=== PATIENT | male | born 1970 | race Caucasian/White ===

== ENCOUNTER → 2019-05-12 | Outpatient (CLI) | payer BC ==
--- NOTE | 2019-05-12 14:15 | P.SLEEP ---
History of Present Illness H&P Date: 05/12/19 Chief Complaint: Hypersomnia This is a 49-year-old male patient diagnosed having severe obstructive sleep apnea based on a home sleep study that was done on 03/24/2019. The [facility] system was used to complete his home sleep study and the patient was found to have severe obstructive sleep apnea with an AHI of 34.3. The patient also demonstrated severe nocturnal oxygen desaturation as the patient spent approximately 2 hours of the sleep time at a pulse ox of less than 88%. Based on all this, the patient was referred to me for treatment recommendations. He is symptomatic. He has gained about 50 pounds over the past few years. He is very much found that and sleepy. He is unable to sleep and his sleep was very much fragmented. He goes to bed around 10 PM wakes up 6 every morning and he is very much somnolent and sleepy during the day. His current a score is at 6. He does not fall asleep while driving. No other significant comorbidities. Review of Systems Constitutional: Reports daytime sleepiness, Reports weight gain Eyes: bilateral tunnel vision/blind spots, denies as per HPI, denies blurred vision, denies bulging eye, denies decreased vision, denies diplopia, denies discharge, denies dry eye, denies irritation, denies itching, denies pain, denies photophobia, denies loss of peripheral vision, denies loss of vision Ears, nose, mouth and throat: Reports as per HPI (The patient has loud snoring) Breasts: absent: as per HPI, gynecomastia Cardiovascular: Denies chest pain, Denies shortness of breath Respiratory: Reports sleep apnea, Reports snoring Gastrointestinal: Denies abdominal pain, Denies diarrhea, Denies nausea, Denies vomiting Genitourinary: Reports as per HPI Musculoskeletal: Reports as per HPI Musculoskeletal: absent: ankle pain, ankle stiffness, ankle swelling, as per HPI, elbow pain, elbow stiffness, elbow swelling, foot pain, foot stiffness, foot swelling, hand pain, hand stiffness, hand swelling, hip pain, hip stiffness, hip swelling, knee pain, knee stiffness, knee swelling, shoulder pain, shoulder stiffness, shoulder swelling, wrist pain, wrist stiffness, wrist swelling Integumentary: Denies pruritus, Denies rash Neurological: Reports as per HPI Psychiatric: Reports as per HPI Endocrine: Reports as per HPI, Reports fatigue Hematologic/Lymphatic: Reports as per HPI Allergic/Immunologic: Reports as per HPI Past Medical History Past Medical History: Sleep Apnea/CPAP/BIPAP (AHI of 34) Past Surgical History: Appendectomy, Orthopedic Surgery (Arthroscopic knee surgery) Smoking Status: Never smoker Past Alcohol Use History: None Reported, Occasional Past Drug Use History: None Reported - Past Family History Father Family Medical History: Asthma, Diabetes Mellitus, Hypertension Medications and Allergies Home Medications and Allergies Comment(s): Flonase spray when necessary and [place] 180 mg by mouth daily Physical Exam Vitals: BP is 135/84, pulse is 107, respiration is 18, temperature 98.4, weight is 332, The neck size 20 inches, [place] score 6, BMI 35.5, Morbidly obese, comfortable likely distress.The patient appeared well nourished and normally developed. Vital signs as documented. Head exam is unremarkable. No scleral icterus or corneal arcus noted. Neck is without jugular venous distension, thyromegaly, or carotid bruits. The patient has a Mallampati class IV. Carotid upstrokes are brisk bilaterally. Lungs are clear to auscultation and percussion. Cardiac exam reveals the PMI to be normally sized and situated. Rhythm is regular. First and second heart sounds normal. No murmurs, rubs or gallops. Abdominal exam reveals normal bowel sounds, no masses, no organomegaly and no aortic enlargement. Extremities are nonedematous and both femoral and pedal pulses are normal.Examination of the skin revealed no evidence of significant rashes, suspicious appearing nevi or other concerning lesions. Neurologically awake and alert and there is no focal neurological deficits. Assessment and Plan Plan: 1 severe obstructive sleep apnea with an AHI of 34 2 severe nocturnal oxygen desaturation 3 chronic hypersomnia 4 obesity with a BMI of 53.5 5 environmental ALLERGIES 6 history of mild intermittent bronchial asthma Plan The patient will be encouraged to lose weight. Improvement in sleep hygiene measures. I would like to get this patient to see Center to undergo a CPAP titration regarding BATSHEVA treatment. We'll try to get an authorization for that. I would like to adjust his CPAP pressure in the setting and given the appropriate mask interface. He is agreeable to that and he is scheduled for a CPAP titration and lab within the next few weeks. We'll continue to follow. Sleep Note - Sleep Note Sleep Note: Temperature: Pulse Rate: Respiratory Rate: Blood Pressure: SpO2: Height: Weight: BMI: Neck Circumference:
== END ==
CPT/HCPCS: 99201

== ENCOUNTER → 2019-09-01 | Outpatient (CLI) | payer BC ==
--- NOTE | 2019-09-01 17:51 | PN ---
PROGRESS NOTE Paul is 49 coming in for a check. He is on an APAP minimum pressure of 10, maximum pressure of 20 and he is compliant and his compliance is at 100% for CPAP use of more than 4 hours. He is averaging 6 hours and 45 minutes of CPAP use per night. His average pressure is up to 20 for the time being. His AHI is down to 2 and his leak is around 22 beats per minute. He is using a Simplus small size and he is looking for alternatives. His humidification system is adequate for now. He is refreshed and alert during the day. He has no new complaints. PHYSICAL EXAMINATION: VITAL SIGNS: BP is 163/78, pulse 91, respirations 22, [place] score is 5, weight is 243, and temperature 98.7 and BMI 52.1. Saturation 94% on room air. General appearance: Calm and comfortable. Head is atraumatic, normocephalic. NECK: Supple. There is no JVD. No goiter or neck masses. Mallampati class 4. LUNGS clear to auscultation. HEART: Heart sounds are regular rate and rhythm. Normal S1, S2. No S3, S4. No murmurs. ABDOMEN: Soft, nontender. No organomegaly. EXTREMITIES: No edema. No cyanosis or clubbing. IMPRESSION: 1. Severe symptomatic obstructive sleep apnea. The patient has been successfully treated. The patient has a baseline AHI of 34, currently on APAP, minimum of 10, maximum of 20 with excellent clinical response and compliance. The compliance data was checked. 2. Obesity, morbid with a BMI of with a BMI of 52. 3. Hypersomnia improved. 4. Hypertension. PLAN: 1. Offer this patient AirFit F20 and AirFit F30 medium-size mask as an alternative for his Simplus. 2. Continue APAP. 3. Encourage weight loss knowing that the patient continues to gain weight steadily. 4. Implement good sleep hygiene measures. Treatment remains successful. Encourage weight loss. 5. See me back in a year's time in followup, earlier if needed. MMODL / IJN: [id number] /
== END | disposition home or self-care (01) ==
LOC: SLEEP 15:58
PROVIDERS: ATTEND Internal Medicine Critical Care Medicine
DX: G47.33 Obstructive sleep apnea (adult) (pediatric) (principal); I10 Essential (primary) hypertension; E66.01 Morbid (severe) obesity due to excess calories; Z68.43 Body mass index [BMI] 50.0-59.9, adult; Z99.89 Dependence on other enabling machines and devices

== ENCOUNTER → 2021-06-15 | Outpatient (CLI) | payer OTHER ==
--- NOTE | 2021-06-15 14:42 | XR ---
EXAMINATION TYPE: XR elbow complete LT DATE OF EXAM: 06/15/2021 CLINICAL HISTORY: pain TECHNIQUE: Frontal, lateral and oblique images of the left elbow are obtained. COMPARISON: None. FINDINGS: There is no acute fracture/dislocation evident of the elbow. No abnormal fat pad signs ar e seen. The overlying soft tissue appears unremarkable. IMPRESSION: There is no acute fracture or dislocation of the elbow. ICD 10 NO FRACTURE, INITIAL EVALUATION
== END | disposition home or self-care (01) ==
LOC: RADXRMAIN 14:14
PROVIDERS: ATTEND Emergency Medicine
DX: S53.402A Unspecified sprain of left elbow, initial encounter (principal); X58.XXXA Exposure to other specified factors, initial encounter

== ENCOUNTER → 2021-08-08 | Outpatient (CLI) | payer BC ==
[2021-08-08 14:21] VITALS: PULSE 80; TEMP 98.2; BMI 52.0
[2021-08-08 14:22] VITALS: BP 144/80
--- NOTE | 2021-08-08 15:29 | P.HPBAR ---
Bariatric H&P - History & Physicial H&P Date: 08/08/21 History & Physicial: Visit/CC: initial clinic visit Patient initial contact: Initial weight: Initial weight in pounds: Height: 5 ft 7 in Initial BMI: Last weight: Current weight: 150.593 kg Current weight in pounds: 332.00 Current BMI: 52.0 Superior body weight (based on NIH guidelines): 67.132 kg Excess body weight loss: The patient is a 51 year-old M who presents for Bariatric Assessment. Patient presents interested in weight loss surgery. Patient states he is interested in sleeve gastrectomy. BMI 52. No tobacco use. Patient says he needs to lose weight in order to have his right hip replaced. Patient suffers from sleep apnea, asthma, gout, arthritis of the hip. No history of DVT or dysphagia. Review of Systems The patient denies any acute changes in vision or hearing, no dysphagia or odynophagia, no chest pain or shortness of breath, no dysuria or hematuria, no headache, no runny nose, no rectal bleeding or melena, no unexplained weight loss Past Medical History Past Medical History: Sleep Apnea/CPAP/BIPAP Additional Past Medical History / Comment(s): gout History of Any Multi-Drug Resistant Organisms: None Reported Past Surgical History: Appendectomy, Orthopedic Surgery Past Anesthesia/Blood Transfusion Reactions: No Reported Reaction Smoking Status: Never smoker - Past Family History Father Family Medical History: Asthma, Diabetes Mellitus, Hypertension Surgical - Exam Vital Signs Temp Pulse BP 98.2 F 80 144/80 08/08/21 14:18 08/08/21 14:18 08/08/21 14:18 Physical exam: General: Well-developed, well-nourished HEENT: Normocephalic, sclerae nonicteric Abdomen: Nontender, nondistended Extremities: No edema Neuro: Alert and oriented Bariatric Assessment & Plan (1) Morbid obesity with BMI of 50.0-59.9, adult Narrative/Plan: 51-year-old male with morbid obesity and associated comorbidities. Patient is interested in sleeve gastrectomy. Risks, benefits, and expected weight loss of sleeve gastrectomy and gastric bypass discussed in detail. The risks of bleeding, infection, stenosis, stricture, leak, abscess, fistula formation, peritonitis, poor weight loss, reflux, vomiting, conversion to an open procedure, aborting sleeve gastrectomy, PA, PE, DVT, and were discussed. The patient understands and wishes to proceed. He requires 3 months revised weight loss. We'll schedule upper endoscopy in the next 2-3 months. Status: Acute Bariatric Checklist Checklist: Plan: Checklist: EGD: 1. Hiatal hernia: 2. H. Pylori: HgbA1c: Vitamin D: Smoking: Never smoker Primary care physician referral: Psychiatry clearance: Cardiology clearance: Sleep study: Diet journal: VTE risk score: VTE risk level: Rehab needs at discharge:
[2021-08-08 15:56] LABS: HCT 45.6 % (39.0-53.0); HGB 15.3 gm/dL (13.0-17.5); MCH 32.7 pg (25.0-35.0); MCHC 33.5 g/dL (31.0-37.0); MCV 97.6 fL (80.0-100.0); Mean Platelet Volume 7.4; Platelet Count 359 k/uL (150-450); RBC 4.67 m/uL (4.30-5.90); WBC 12.7 k/uL (3.8-10.6)
[2021-08-09 03:24] LABS: Folate, Serum 11.2 ng/mL (4.40-31.00)
[2021-08-09 04:17] LABS: African American GFR (CKD) 117.7 (60.0-200.0); Albumin 4.4 g/dL (3.8-4.9); Albumin/Globulin Ratio 1.54 (1.60-3.17); Anion Gap 15.2 mmol/L (4.00-12.00); BUN/Creat Ratio 16.99 Ratio (12.00-20.00); Blood Urea Nitrogen 14.2 mg/dL (9.0-27.0); Calcium 9.3 mg/dL (8.7-10.3); Carbon Dioxide 23.2 mmol/L (21.6-31.8); Globulin 2.9 g/dL (1.6-3.3); Non-African American GFR(CKD) 101.6 (60.0-200.0); Total Bilirubin 0.3 mg/dL (0.30-1.20); Total Protein 7.2 g/dL (6.2-8.2)
[2021-08-10 10:58] LABS: Anabasine Urine <2.0 ng/mL (<2.0)
== END | disposition home or self-care (01) ==
LOC: BARWHC3 13:25
PROVIDERS: ATTEND Surgery
DX: E66.01 Morbid (severe) obesity due to excess calories (principal); Z68.43 Body mass index [BMI] 50.0-59.9, adult
CPT/HCPCS: 36415; 80053; 80323; 82306; 82607; 82746; 83036; 83540; 84425; 85027; 93005; 99211

== ENCOUNTER 2021-10-31 10:07 | Day surgery (SDC) | payer BC ==
[2021-10-26 13:32] VITALS: BMI 49.4
[~2021-10-31 10:07] MED LIST: LACTATED RINGERS 1,000 ML IV SCH; LIDOCAINE 1% (10MG/ML) FOR IV START INTRADERMA PRN
[2021-10-31 10:52] VITALS: TEMP 97.9
[2021-10-31] MEDS ORDERED: LIDOCAINE 1% INJ 10MG/ML (20 ML MDV) ONE (11:43)
[2021-10-31] MEDS ORDERED: PROPOFOL 10 MG/ML 20 ML VIAL IV ONE (11:43)
--- NOTE | 2021-10-31 11:45 | P.GSHP ---
History of Present Illness H&P Date: 10/31/21 Chief Complaint: GERD, screening 51-year-old male known to our service. Patient is being evaluated for possible bariatric surgery. Patient has not had a colonoscopy before. Mild reflux at times. No bowel complaints. No family history of colon cancer. Past Medical History Past Medical History: Asthma, Sleep Apnea/CPAP/BIPAP Additional Past Medical History / Comment(s): gout, USES C -PAP History of Any Multi-Drug Resistant Organisms: None Reported Past Surgical History: Appendectomy, Orthopedic Surgery Additional Past Surgical History / Comment(s): RIGHT KNEE ARTHROSCOPIC Past Anesthesia/Blood Transfusion Reactions: No Reported Reaction Smoking Status: Never smoker - Past Family History Father Family Medical History: No Reported History Mother Family Medical History: COPD Sister(s) Family Medical History: Cancer Medications and Allergies Home Medications Medication Instructions Recorded Confirmed Type Allopurinol [Zyloprim] 100 mg PO DAILY 08/07/21 10/31/21 History Multivitamins, Thera [Multivitamin 1 tab PO DAILY 10/26/21 10/26/21 History (formulary)] Cetirizine HCl [Zyrtec] 10 mg PO DAILY 10/31/21 10/31/21 History Allergies Allergy/AdvReac Type Severity Reaction Status Date / Time No Known Allergies Allergy Verified 10/31/21 10:45 Surgical - Exam Vital Signs Temp Pulse Resp BP Pulse Ox 97.9 F 82 16 180/98 93 L 10/31/21 10:51 10/31/21 10:51 10/31/21 10:51 10/31/21 10:51 10/31/21 10:51 Physical exam: General: Well-developed, well-nourished HEENT: Normocephalic, sclerae nonicteric Abdomen: Nontender, nondistended Extremities: No edema Neuro: Alert and oriented Assessment and Plan (1) Colon cancer screening Narrative/Plan: Will proceed with upper and lower endoscopy Current Visit: Yes Status: Acute Code(s): Z12.11 - ENCOUNTER FOR SCREENING FOR MALIGNANT NEOPLASM OF COLON SNOMED Code(s): 986714360
--- NOTE | 2021-10-31 12:03 | P.PCN ---
Date of Procedure: 10/31/21 Procedure(s) Performed: PREOPERATIVE DIAGNOSIS: GERD, colon cancer screening POSTOPERATIVE DIAGNOSIS: Gastritis with erosions, diverticulosis PROCEDURE: 1. EGD with biopsy 2. Colonoscopy ANESTHESIA: MAC SURGEON: Milton Partida M.D. SPECIMENS: Antrum ENDOSCOPIC PROCEDURE: The patient was on the endoscopy table in the left decubitus position. The Olympus gastroscope was inserted into the oropharynx and passed under direct visualization to the region of the third portion of the duodenum. From that point the scope was slowly withdrawn inspecting all surfaces carefully. There were no neoplastic inflammatory or polypoid lesions throughout the duodenum. The pylorus was widely patent. The stomach was carefully inspected. There was gastritis with small erosions present. A biopsy of the antrum took place to rule out H. pylori. Retroflexion revealed a normal hiatus. The esophagus was then carefully examined. There were no neoplastic inflammatory or polypoid lesions throughout the visualized esophagus. The patient was kept on the endoscopy table in the left decubitus position. The Olympus colonoscope was inserted into the anus and passed under direct visualization to the base of the cecum. The appendiceal orifice was visualized. From that point the scope was slowly withdrawn inspecting all surfaces carefully. There were no neoplastic inflammatory or polypoid lesions throughout the cecum, ascending, transverse, descending, sigmoid and rectum. There was mild scattered diverticulosis noted. Digital rectal examination was normal. The patient was taken to the recovery room in stable condition per anesthesia guidelines. RECOMMENDATIONS: Begin antiacid therapy. Follow-up bariatric clinic. Follow-up colonoscopy 10 years.
[2021-10-31 12:16] VITALS: RESP 12
[2021-10-31 12:42] VITALS: BP 147/59; PULSE 82
== END 2021-10-31 12:46 | disposition home or self-care (01) ==
LOC: ORWHC2ENDO 10:07
PROVIDERS: ATTEND Surgery
DX: K29.70 Gastritis, unspecified, without bleeding (principal); K57.90 Diverticulosis of intestine, part unspecified, without perforation or abscess without bleeding
CPT/HCPCS: 43239; 45378; J2001; J2704; 88305

== ENCOUNTER → 2021-12-18 | Outpatient (CLI) | payer BC ==
[2021-12-18 11:26] VITALS: BMI 51.5
== END | disposition home or self-care (01) ==
LOC: BARWHC3 08:32
PROVIDERS: ATTEND Surgery
DX: E66.01 Morbid (severe) obesity due to excess calories (principal); Z71.3 Dietary counseling and surveillance
CPT/HCPCS: 97804

== ENCOUNTER → 2025-04-23 | Outpatient (CLI) | payer BC ==
[2025-04-23 09:37] LABS: INR 1.0 (<1.2); Partial Thromboplastin Time 23.7 sec (22.0-30.0); Prothrombin Time 10.8 sec (10.0-12.5)
[2025-04-23 15:28] LABS: HCT 45.0 % (39.6-50.0); HGB 14.6 g/dL (13.0-17.0); MCH 31.7 pg (27.0-32.0); MCHC 32.4 g/dL (32.0-37.0); MCV 97.6 FL (80.0-97.0); NRBC Per 100 WBC 0 X 10*3/uL (0.00-0.01); Platelet Count 324 X 10*3/uL (140-440); RBC 4.61 X 10*6/uL (4.40-5.60); RDW 13.1 % (11.5-14.5); WBC 8.22 X 10*3/uL (4.50-10.00)
[2025-04-23 15:35] LABS: ALT 23 U/L (10-49); AST 18 U/L (14-35); Albumin 4.4 g/dL (3.8-4.9); Albumin/Globulin Ratio 1.76 Ratio (1.60-3.17); Alkaline Phosphatase 61 U/L (41-126); Anion Gap 10.70 mmol/L (4.00-12.00); BUN/Creat Ratio 26.38 Ratio (12.00-20.00); Blood Urea Nitrogen 21.1 mg/dL (9.0-27.0); Calcium 9.3 mg/dL (8.7-10.3); Carbon Dioxide 26.3 mmol/L (21.6-31.8); Chloride 104 mmol/L (96-109); Globulin 2.5 g/dL (1.6-3.3); Glucose 87 mg/dL (70-110); Potassium 4.5 mmol/L (3.5-5.5); Sodium 141 mmol/L (135-145); Total Protein 6.9 g/dL (6.2-8.2)
== END | disposition home or self-care (01) ==
LOC: LABPAT 08:24
PROVIDERS: ATTEND Orthopaedic Surgery
DX: Z01.818 Encounter for other preprocedural examination (principal); Z22.322 Carrier or suspected carrier of Methicillin resistant Staphylococcus aureus; M16.11 Unilateral primary osteoarthritis, right hip
CPT/HCPCS: 80053; 85027; 85610; 85730; 86850; 86900; 86901; 87070; 93005